=== PATIENT | male | born 1980 | race Caucasian/White ===

== ENCOUNTER 2016-08-10 20:05 | Emergency (ER) | payer SELFPAY | END 2016-08-10 20:30 | disposition short-term general hospital (02) | LOC: ER 20:05 | DX: L02.415 Cutaneous abscess of right lower limb (principal); W57.XXXA Bitten or stung by nonvenomous insect and other nonvenomous arthropods, initial encounter | CPT/HCPCS: J0696 ==

== ENCOUNTER 2016-10-17 19:50 | Emergency (ER) | payer SELFPAY ==
[~2016-10-17] VITALS: Ht 172.7 cm; Wt 77.1 kg
== END 2016-10-17 21:10 | disposition short-term general hospital (02) ==
LOC: ER 19:50
PROC: 0H96XZZ Drainage of Back Skin, External Approach (ICD-10-PCS; principal; 2016-10-17)
DX: L02.212 Cutaneous abscess of back [any part, except buttock and flank] (principal); Z86.14 Personal history of Methicillin resistant Staphylococcus aureus infection
CPT/HCPCS: J0696